=== PATIENT | female | born 1980 | race Caucasian/White ===

== ENCOUNTER 2018-06-30 08:48 | Emergency (ER) | payer MEDICAID ==
[~2018-06-30] VITALS: Ht 157.5 cm; Wt 98.3 kg
[~2018-06-30 08:48] MED LIST: ALPR0.25; FLUO40CA9
[2018-06-30 08:53] VITALS: BP 135/90
[2018-06-30] MEDS ORDERED: LURA20TA PO (09:08)
[2018-06-30] MEDS ORDERED: AMLO5TAB7 PO (09:08)
[2018-06-30] MEDS ORDERED: HYDROcodone/APAP 5/325 TABLET ONE (09:12)
[2018-06-30] MEDS ORDERED: KETOROLAC 30 MG/1 ML ONE (09:12)
[2018-06-30] MEDS ORDERED: KETOROLAC 30 MG/1 ML IM ONE (09:30)
[2018-06-30] MEDS ORDERED: HYDROcodone/APAP 5/325 TABLET PO ONE (09:30)
== END 2018-06-30 10:11 | disposition home or self-care (01) ==
LOC: ED 10:05
DX: G89.11 Acute pain due to trauma (principal); M25.551 Pain in right hip; M25.552 Pain in left hip; F17.200 Nicotine dependence, unspecified, uncomplicated; W11.XXXA Fall on and from ladder, initial encounter; Y93.89 Activity, other specified; Y92.009 Unspecified place in unspecified non-institutional (private) residence as the place of occurrence of the external cause; Y99.8 Other external cause status
CPT/HCPCS: 71101; 72190; 96372; 99284; J1885

== ENCOUNTER 2019-03-06 14:35 | Inpatient (IN) | payer MEDICAID ==
[~2019-03-06] VITALS: Ht 157.5 cm; Wt 95.3 kg
[~2019-03-06 14:35] MED LIST changes: +AMLO-150 PO; +LURA20TA PO
--- NOTE | 2019-03-06 15:00 | NUR ---
PATIENT PRESENTS TO ED TODAY SI WITH PLAN, "I WILL HANG MYSELF, I WILL CUT MY WRISTS", PATIENT CRYING, LAYING IN GURNEY. SELF INFLICTED BITE HENOK TO RT ARM, ADMITS TO DRINKING 1 PINT OF VODKA TODAY, + MARIJUANA USE, PATIENT HAS BEEN OUT OF LORAZEPAM X 5 DAYS PER PATIENT. MD AT BEDSIDE, AWAITING MD ORDERS, ALL PERSONAL BELONGING IN BAG IN LOCKED STORAGE, ALL SAFETY MEASURES IN PLACE. SITTER AT DOORWAY WITH PATIENT IN SIGHT. Addendum: 03/06/19 at 1553 by MARÍA BITE HENOK TO RIGHT ARM WITH SKIN INTACT.
--- NOTE | 2019-03-06 15:10 | NUR ---
BREAK RN: Pt on ho, crying and moaning loudly. Garage doors down and sitter at bedside. Pt states she is unable to provide urine sample at this time.
--- NOTE | 2019-03-06 15:17 | NUR ---
BREAK RN: EDT at bedside to attempt to obtain a breathalyzer reading.
[2019-03-06 15:19] LABS: BASOPHILS # (AUTO) 0.05 x10^3/uL (0-0.1); BASOPHILS % (AUTO) 1 % (0-1); EOSINOPHILS # (AUTO) 0.15 x10^3/uL (0-0.4); EOSINOPHILS % (AUTO) 1 % (1-7); LYMPHOCYTES # (AUTO) 3.62 x10^3/uL (1-3.4); LYMPHOCYTES % (AUTO) 31 % (22-44); MD NO; MEAN CORPUSCULAR HGB CONC 33.7 g/dL (32.4-35.8); MEAN CORPUSCULAR VOLUME 91.9 fL (80-100); MEAN PLATELET VOLUME 8.9 fL (7.4-10.4); MONOCYTES # (AUTO) 0.62 x10^3/uL (0.2-0.8); MONOCYTES % (AUTO) 5 % (2-9); NEUTROPHILS # (AUTO) 7.15 x10^3/uL (1.8-6.8); NEUTROPHILS % (AUTO) 62 % (42-75); PLATELET COUNT 408 x10^3/uL (130-400); RED BLOOD COUNT 4.25 x10^6/uL (3.82-5.3); RED CELL DISTRIBUTION WIDTH 15.3 % (9.6-15.2)
[2019-03-06 15:28] LABS: ALBUMIN 4.2 g/dL (3.4-5.0); ANION GAP 8 mmol/L (5-15); CALCIUM 8.8 mg/dL (8.5-10.1); CHLORIDE 112 mmol/L (98-107); CREATININE 0.81 mg/dL (0.55-1.02); SALICYLATE LEVEL 3.8 mg/dL (2.8-20.0)
[2019-03-06] MEDS ORDERED: LORazepam 1MG TABLET PO ONE (15:30)
--- NOTE | 2019-03-06 15:38 | NUR ---
BREAK RN: Pt much quieter now, rocking back and forth on ho. This RN explained need for urine sample so that we may give the technical specialist cytogenetics who will speak with her any information regarding substances in her urine test. Pt agrees to give urine sample and thanks this RN for the explanation and care. This RN will pass on to primary RN that the pt appreciates thorough explanations regarding care.
[2019-03-06] MEDS ORDERED: LORazepam 1MG TABLET ONE (15:42)
--- NOTE | 2019-03-06 15:44 | NUR ---
BREAK RN: Pt medicated per MAR.
[2019-03-06 15:51] LABS: HCG UR SG 1.026 (1.003-1.030)
[2019-03-06 15:51] LABS: ACETAMINOPHEN < 2 mcg/mL (10-30)
[2019-03-06 16:05] LABS: AMPHETAMINE SCREEN, URINE Negative (Negative); BARBITURATE SCREEN, URINE Negative (Negative); BENZODIAZEPINE SCREEN, URINE Negative (Negative); CANNABINOID SCREEN, URINE Positive (Negative); COCAINE SCREEN, URINE Negative (Negative); METHADONE SCREEN, URINE Negative (Negative); OPIATE SCREEN, URINE Negative (Negative)
--- NOTE | 2019-03-06 17:13 | NUR ---
HBI will see
[2019-03-06] MEDS ORDERED: ONDANSETRON 2MG/ML, 2ML IVPush PRN (17:30)
[2019-03-06] MEDS ORDERED: hydrALAzine 20 MG/ML, 1ML IVPush PRN (17:30)
[2019-03-06] MEDS ORDERED: AZITHROMYCIN 500 MG in SODIUM CHLORIDE 0.9% 250 ML IV SCH (17:30)
[2019-03-06] MEDS ORDERED: ENOXAPARIN 40 MG/0.4 ML SQ SCH (17:30)
[2019-03-06] MEDS ORDERED: TOPI50TA35 PO (18:00)
[2019-03-06] MEDS ORDERED: FLUO40CA9 PO (18:00)
[2019-03-06] MEDS ORDERED: GABA-827 PO (18:00)
[2019-03-06] MEDS ORDERED: LORA1TAB PO (18:01)
[2019-03-06] MEDS ORDERED: ENOXAPARIN 40 MG/0.4 ML ONE (18:09)
[2019-03-06] MEDS ORDERED: AMLODIPINE 5 MG TABLET ONE (18:10)
[2019-03-06] MEDS ORDERED: methylPREDNISolone SOD SUCC 125 MG/2 ML ONE (18:10)
[2019-03-06] MEDS: AMLODIPINE 5 MG TABLET PO SCH ×2 (18:13→21:00)
[2019-03-06] MEDS: methylPREDNISolone SOD SUCC 125 MG/2 ML IVPush SCH ×2 (18:14→23:32)
--- NOTE | 2019-03-06 18:26 | NUR ---
NEW ORDERS, IV STARTED, ABX AND MEDICATIONS ADMINISTERED PER [facility] ORDER, NO CULTURES NEEDED PER DR ESTEBAN, REPORT TO ALIA ROMAN. AWAITING AVAILABLE SITTER PRIOR TO TRANSFER UPSTAIRS. PATIENT HAVING 8/10 HEAD PAIN, PAIN MEDICATION ADMINISTERED PER PRN ORDER. NO ADDITIONAL NEEDS AT THIS TIME. PATIENT SITTING IN GURNEY, CALM AND COOPERATIVE AT THIS TIME. SITTER AT DOORWAY WITH PATIENT IN SIGHT.
--- NOTE | 2019-03-06 18:33 | NUR ---
PATIENT AMBULATED TO BATHROOM WITH STEADY GAIT, BACK TO BED, SITTER AT DOORWAY, ALL SAFETY MEASURES IN PLACE. VS UPDATED IN CHART.
[2019-03-06] MEDS ORDERED: hydrALAzine 20 MG/ML, 1ML ONE (18:40)
--- NOTE | 2019-03-06 18:42 | NUR ---
BP 165/102, HYDRALIZINE ADMINISTERED PER [facility] ORDER. PATIENT READY FOR TRANSPORT. A+OX4.
--- NOTE | 2019-03-06 19:13 | NUR ---
PATIENT TRANSFERRED TO HOSPITAL BED UPSTAIRS.
[2019-03-06] MEDS: ACETAMINOPHEN 325 MG TABLET PO PRN (19:26)
[2019-03-06 19:54] VITALS: BP 146/81
[2019-03-06] MEDS: LISINOPRIL 20 MG TABLET PO SCH (20:30)
[2019-03-07 01:24] VITALS: BP 128/75
[2019-03-07] MEDS: methylPREDNISolone SOD SUCC 125 MG/2 ML IVPush SCH (05:10)
[2019-03-07] MEDS: ACETAMINOPHEN 325 MG TABLET PO PRN ×2 (05:15→13:21)
[2019-03-07 05:23] VITALS: BP 161/95
[2019-03-07 05:25] LABS: BASOPHILS # (AUTO) 0.02 x10^3/uL (0-0.1); BASOPHILS % (AUTO) 0 % (0-1); EOSINOPHILS % (AUTO) 0 % (1-7); LYMPHOCYTES # (AUTO) 1.32 x10^3/uL (1-3.4); LYMPHOCYTES % (AUTO) 11 % (22-44); MD NO; MEAN CORPUSCULAR HGB CONC 33.5 g/dL (32.4-35.8); MEAN CORPUSCULAR VOLUME 92.5 fL (80-100); MONOCYTES # (AUTO) 0.01 x10^3/uL (0.2-0.8); MONOCYTES % (AUTO) 0 % (2-9); NEUTROPHILS # (AUTO) 10.38 x10^3/uL (1.8-6.8); NEUTROPHILS % (AUTO) 89 % (42-75); PLATELET COUNT 368 x10^3/uL (130-400); RED BLOOD COUNT 4.72 x10^6/uL (3.82-5.3); RED CELL DISTRIBUTION WIDTH 15.3 % (9.6-15.2)
[2019-03-07] MEDS: AMLODIPINE 5 MG TABLET PO SCH ×2 (07:48→15:39)
[2019-03-07] MEDS: LISINOPRIL 20 MG TABLET PO SCH (07:48)
[2019-03-07 08:48] VITALS: BP 127/67
[2019-03-07] MEDS ORDERED: LURASIDONE 20 MG TABLET PO SCH (09:00)
[2019-03-07] MEDS ORDERED: NICOTINE 21 MG/24 HR PATCH.TD24 TD SCH (09:00)
[2019-03-07] MEDS ORDERED: AZITHROMYCIN 500 MG TABLET PO SCH (10:30)
[2019-03-07] MEDS ORDERED: NICO-487 TD (10:52)
[2019-03-07] MEDS ORDERED: IPRA3AMP30 INH (10:52)
[2019-03-07] MEDS ORDERED: FLUT1DIS3 INH (10:52)
[2019-03-07] MEDS ORDERED: AMLO-150 PO (10:52)
[2019-03-07] MEDS ORDERED: TIOT18CA INH (10:52)
[2019-03-07] MEDS ORDERED: LISI-170 PO (10:52)
[2019-03-07] MEDS ORDERED: AZIT500T5 PO (10:52)
[2019-03-07] MEDS ORDERED: PRED20TA PO (10:52)
[2019-03-07] MEDS ORDERED: LORA1TAB PO (13:07)
[2019-03-07] MEDS ORDERED: LORazepam 1MG TABLET ONE (13:20)
[2019-03-07] MEDS ORDERED: LORazepam 1MG TABLET PO ONE (13:30)
[2019-03-07 14:59] VITALS: BP 152/96
== END 2019-03-07 17:13 | DRG 885 ==
LOC: ED 15:38 → EDIP 17:02 → 4NOR 19:04 → 2N 03-07 14:03
PROVIDERS: ADMIT Internal Medicine; ATTEND Internal Medicine
DX: F32.1 Major depressive disorder, single episode, moderate (principal); R45.851 Suicidal ideations; J44.1 Chronic obstructive pulmonary disease with (acute) exacerbation; D72.829 Elevated white blood cell count, unspecified; E66.9 Obesity, unspecified; F17.200 Nicotine dependence, unspecified, uncomplicated; I10 Essential (primary) hypertension; Z91.19 Patient's noncompliance with other medical treatment and regimen; Z68.38 Body mass index [BMI] 38.0-38.9, adult; Z98.51 Tubal ligation status; Z88.0 Allergy status to penicillin
CPT/HCPCS: 36415; 80048; 80307; 81025; 82040; 84443; 85025; 93005; 99285; G0378; J0456; J1650; J0360; J2930; J7050; J7512

== ENCOUNTER 2020-03-10 09:20 | Emergency (ER) | payer MEDICAID ==
[~2020-03-10] VITALS: Ht 157.5 cm; Wt 105.3 kg
[~2020-03-10 09:20] MED LIST changes: +AZIT500T10 PO; +FLUO40CA9 PO; +FLUT1DIS3 INH; +GABA-827 PO; +IPRA3AMP30 INH; +LISI-170 PO; +LORA1TAB PO; +NICO-487 TD; +PRED20TA PO; +TIOT18CA INH; +TOPI50TA35 PO
[2020-03-10 09:22] VITALS: BP 133/64
[2020-03-10] MEDS ORDERED: HYDROcodone/APAP 5/325 TABLET PO ONE (10:00)
[2020-03-10] MEDS ORDERED: ACETAMINOPHEN 500 MG TABLET PO ONE (10:00)
[2020-03-10] MEDS ORDERED: HYDROcodone/APAP 5/325 TABLET ONE (10:07)
== END 2020-03-10 10:28 | disposition home or self-care (01) ==
LOC: ED 10:21
DX: S02.5XXA Fracture of tooth (traumatic), initial encounter for closed fracture (principal); K04.7 Periapical abscess without sinus; I10 Essential (primary) hypertension; E66.9 Obesity, unspecified; Z68.41 Body mass index [BMI] 40.0-44.9, adult; Z88.0 Allergy status to penicillin; X58.XXXA Exposure to other specified factors, initial encounter; Y93.9 Activity, unspecified; Y92.89 Other specified places as the place of occurrence of the external cause; Y99.8 Other external cause status
CPT/HCPCS: 99283

== ENCOUNTER 2020-03-12 23:45 | Emergency (ER) | payer MEDICAID ==
[~2020-03-12] VITALS: Ht 157.5 cm; Wt 104.9 kg
[2020-03-12 23:46] VITALS: BP 168/84
[2020-03-13] MEDS ORDERED: ONDANSETRON 2MG/ML, 2ML ONE (00:10)
[2020-03-13] MEDS ORDERED: MORPHINE SULFATE 4 MG/ML, 1ML ONE (00:10)
--- NOTE | 2020-03-13 00:10 | NUR ---
Patient presents to ER c/o epigastric pain which radiates to back. Patient has had the pain x1 week and it has become unbearable. Patient has also been nauseous. Patient states she has been taking a lot of ibuprofen and tylenol because she was on her period then she was having dental pain. Patient states she has a hx of pancreatitis. Patient is in NAD. Respirations even and unlabored.
[2020-03-13] MEDS ORDERED: ONDANSETRON 2MG/ML, 2ML IVPush ONE (00:30)
[2020-03-13] MEDS ORDERED: MORPHINE SULFATE 4 MG/ML, 1ML IVPush PRN (00:30)
[2020-03-13 01:18] LABS: ALANINE AMINOTRANSFERASE 24 U/L (12-78); ALBUMIN 3.5 g/dL (3.4-5.0); ANION GAP 6 mmol/L (5-15); CALCIUM 8.5 mg/dL (8.5-10.1); CHLORIDE 112 mmol/L (98-107); CREATININE 0.94 mg/dL (0.55-1.02)
[2020-03-13 01:23] LABS: ALKALINE PHOSPHATASE 64 U/L (45-117); BILIRUBIN,TOTAL 0.3 mg/dL (0.2-1.0)
[2020-03-13 01:32] LABS: BASOPHILS # (AUTO) 0.03 x10^3/uL (0-0.1); BASOPHILS % (AUTO) 0 % (0-1); EOSINOPHILS # (AUTO) 0.47 x10^3/uL (0-0.4); EOSINOPHILS % (AUTO) 6 % (1-7); LYMPHOCYTES # (AUTO) 1.78 x10^3/uL (1-3.4); LYMPHOCYTES % (AUTO) 24 % (22-44); MD NO; MEAN CORPUSCULAR HEMOGLOBIN 30.3 pg (27.0-34.8); MEAN CORPUSCULAR HGB CONC 33.5 g/dL (32.4-35.8); MEAN CORPUSCULAR VOLUME 90.4 fL (80-100); MEAN PLATELET VOLUME 9.7 fL (7.4-10.4); MONOCYTES # (AUTO) 0.48 x10^3/uL (0.2-0.8); MONOCYTES % (AUTO) 6 % (2-9); NEUTROPHILS # (AUTO) 4.84 x10^3/uL (1.8-6.8); NEUTROPHILS % (AUTO) 64 % (42-75); PLATELET COUNT 272 x10^3/uL (130-400); RED BLOOD COUNT 4.04 x10^6/uL (3.82-5.3); RED CELL DISTRIBUTION WIDTH 16.3 % (9.6-15.2)
[2020-03-13 01:44] LABS: MICROSCOPIC INDICATED
--- NOTE | 2020-03-13 02:31 | NUR ---
Discharge instructions given. All questions and concerns addressed. Patient ambulatory with a steady gait. Belongings with patient.
== END 2020-03-13 02:32 | disposition home or self-care (01) ==
LOC: ED 03-13 00:06
DX: K29.00 Acute gastritis without bleeding (principal); I10 Essential (primary) hypertension; F17.200 Nicotine dependence, unspecified, uncomplicated; Z98.51 Tubal ligation status
CPT/HCPCS: 36415; 76700; 80053; 81001; 83690; 84703; 85025; 96374; 96375; 99285; J2270; J2405

== ENCOUNTER 2020-04-20 10:48 | Emergency (ER) | payer MEDICAID ==
[~2020-04-20] VITALS: Ht 157.5 cm; Wt 104.3 kg
[2020-04-20 10:50] VITALS: BP 141/77
--- NOTE | 2020-04-20 10:57 | NUR ---
PT AMBULATED TO ROOM 18 FROM TRIAGE WITH A STEADY GAIT.
--- NOTE | 2020-04-20 10:59 | NUR ---
MD IS AT THE BEDSIDE FOR ASSESSMENT
[2020-04-20] MEDS ORDERED: ONDANSETRON ODT 4 MG ONE (11:06)
[2020-04-20] MEDS ORDERED: ACETAMINOPHEN 500 MG TABLET ONE (11:06)
--- NOTE | 2020-04-20 11:09 | NUR ---
PHLEBOTOMY IS AT THE BEDSIDE FOR BLOOD SAMPLING
[2020-04-20 11:23] LABS: BASOPHILS # (AUTO) 0.04 x10^3/uL (0-0.1); BASOPHILS % (AUTO) 0 % (0-1); EOSINOPHILS # (AUTO) 0.17 x10^3/uL (0-0.4); EOSINOPHILS % (AUTO) 2 % (1-7); LYMPHOCYTES # (AUTO) 2.06 x10^3/uL (1-3.4); LYMPHOCYTES % (AUTO) 20 % (22-44); MD NO; MEAN CORPUSCULAR HEMOGLOBIN 31.2 pg (27.0-34.8); MEAN CORPUSCULAR HGB CONC 33.5 g/dL (32.4-35.8); MEAN PLATELET VOLUME 9.2 fL (7.4-10.4); MONOCYTES # (AUTO) 0.66 x10^3/uL (0.2-0.8); MONOCYTES % (AUTO) 6 % (2-9); NEUTROPHILS # (AUTO) 7.67 x10^3/uL (1.8-6.8); NEUTROPHILS % (AUTO) 72 % (42-75); PLATELET COUNT 349 x10^3/uL (130-400); RED BLOOD COUNT 4.26 x10^6/uL (3.82-5.3); RED CELL DISTRIBUTION WIDTH 16.7 % (9.6-15.2)
[2020-04-20] MEDS ORDERED: ONDANSETRON ODT 4 MG PO ONE (11:30)
[2020-04-20] MEDS ORDERED: ACETAMINOPHEN 500 MG TABLET PO ONE (11:30)
[2020-04-20 11:36] LABS: ALANINE AMINOTRANSFERASE 28 U/L (12-78); ALBUMIN 3.8 g/dL (3.4-5.0); ANION GAP 9 mmol/L (5-15); CALCIUM 9.1 mg/dL (8.5-10.1); CHLORIDE 108 mmol/L (98-107); CREATININE 0.94 mg/dL (0.55-1.02)
[2020-04-20 11:41] LABS: ALKALINE PHOSPHATASE 81 U/L (45-117); BILIRUBIN,TOTAL 0.5 mg/dL (0.2-1.0); TOTAL PROTEIN 7.3 g/dL (6.4-8.2)
--- NOTE | 2020-04-20 11:50 | NUR ---
pt is sleeping sonorously on an E.R. gurney no acute changes noted at this time. and no distress noted at the current time. i will continue to monitor and treat as ordered, as well as prn.
== END 2020-04-20 12:48 | disposition home or self-care (01) ==
LOC: ED 12:37
DX: E86.0 Dehydration (principal); R11.2 Nausea with vomiting, unspecified; K59.00 Constipation, unspecified; R51 Headache; I10 Essential (primary) hypertension; Z98.51 Tubal ligation status
CPT/HCPCS: 36415; 80053; 83690; 84703; 85025; 99283; Q0162

== ENCOUNTER 2020-10-21 14:18 | Emergency (ER) | payer MEDICAID ==
[~2020-10-21] VITALS: Ht 157.5 cm; Wt 100.0 kg
[~2020-10-21 14:18] MED LIST changes: -NICO-487 TD; +NICO-587 TD
--- NOTE | 2020-10-21 15:36 | NUR ---
NECK FITTER: PT TO ROOM FROM LOBBY
[2020-10-21] MEDS ORDERED: IBUPROFEN 800 MG TABLET PO ONE (16:00)
[2020-10-21] MEDS ORDERED: DEXAMETHASONE 4 MG TABLET PO ONE (16:00)
[2020-10-21] MEDS ORDERED: DEXAMETHASONE 4 MG TABLET ONE (16:04)
[2020-10-21] MEDS ORDERED: IBUPROFEN 600 MG TABLET ONE (16:04)
--- NOTE | 2020-10-21 16:14 | NUR ---
Pt connected to pulse ox, b/p. call light, rails up, medicated per order. PCXR done, swabbed for strep, AIDET provided.
[2020-10-21 16:48] VITALS: BP 135/77
== END 2020-10-21 17:04 | disposition home or self-care (01) ==
LOC: ED 15:39
DX: J02.9 Acute pharyngitis, unspecified (principal); R06.00 Dyspnea, unspecified; R05 Cough; R09.81 Nasal congestion; R06.02 Shortness of breath; M79.10 Myalgia, unspecified site; I10 Essential (primary) hypertension; F17.210 Nicotine dependence, cigarettes, uncomplicated; Z98.51 Tubal ligation status
CPT/HCPCS: 71045; 87081; 87880; 99284; 99406

== ENCOUNTER 2020-11-08 14:00 | Emergency (ER) | payer MEDICAID ==
[~2020-11-08] VITALS: Ht 157.5 cm; Wt 106.1 kg
[2020-11-08 14:04] VITALS: BP 116/65
[2020-11-08] MEDS ORDERED: DEXAMETHASONE 4 MG/ML, 1ML PO ONE (14:30)
--- NOTE | 2020-11-08 16:21 | NUR ---
lap cutter truer operator: pt from lobby to room 24
[2020-11-08] MEDS ORDERED: DEXAMETHASONE 4 MG TABLET ONE (16:25)
--- NOTE | 2020-11-08 16:31 | NUR ---
PT MEDICATED PER ERP ORDER. CALL LIGHT WITHIN REACH. PT UPDATED ON RESULT.
--- NOTE | 2020-11-08 18:07 | NUR ---
REPORT TO [place], TRANSFER OF CARE AT THIS TIME.
--- NOTE | 2020-11-08 18:12 | NUR ---
Patient given discharge instructions and Rx, they have confirmed that they understand the instructions. Patient ambulatory with steady gait.
== END 2020-11-08 18:13 | disposition home or self-care (01) ==
LOC: ED 17:05
DX: J98.01 Acute bronchospasm (principal); J04.0 Acute laryngitis; B97.89 Other viral agents as the cause of diseases classified elsewhere; R05 Cough; I10 Essential (primary) hypertension
CPT/HCPCS: 71045; 87081; 87880; 99284; J1100

== ENCOUNTER 2020-11-15 14:38 | Emergency (ER) | payer MEDICAID ==
[~2020-11-15] VITALS: Ht 157.5 cm; Wt 105.4 kg
--- NOTE | 2020-11-15 14:51 | NUR ---
PT HERE WITH C/O SORE THROAT AND BODY ACHES X3 DAYS, ALSO STATES SHE LOST HER VOICE 3 WEEKS AGO. TESTED FOR COVID ON 10/16 AT [facility] BUT NOT RECEIVED RESULTS YET. PT PLACED ON VITALS MONITORS, CALL LIGHT PLACED WITHIN REACH. Addendum: 11/15/20 at 1458 by AUDI PT STATES SHE RECEIVED THE COVID VACCINE ON 11/10/20.
[2020-11-15] MEDS ORDERED: HYDROcodone/APAP 7.5-325MG/15ML UDC ONE (15:18)
[2020-11-15] MEDS ORDERED: ALBUTEROL/IPRATROPIUM 2.5MG/0.5MG, 3 ML ONE ×2 (15:18→15:24)
[2020-11-15] MEDS ORDERED: DEXAMETHASONE 4 MG TABLET ONE (15:19)
[2020-11-15] MEDS ORDERED: HYDROcodone/APAP 7.5-325MG/15ML UDC PO PRN (15:30)
[2020-11-15] MEDS ORDERED: ALBUTEROL/IPRATROPIUM 2.5MG/0.5MG, 3 ML NPPB SCH (15:30)
[2020-11-15] MEDS ORDERED: DEXAMETHASONE 4 MG TABLET PO ONE (15:30)
[2020-11-15 16:18] VITALS: BP 120/56
== END 2020-11-15 16:20 | disposition home or self-care (01) ==
LOC: ED 16:04
DX: J06.9 Acute upper respiratory infection, unspecified (principal); Z20.822 Contact with and (suspected) exposure to COVID-19; B34.9 Viral infection, unspecified; J40 Bronchitis, not specified as acute or chronic; F17.200 Nicotine dependence, unspecified, uncomplicated
CPT/HCPCS: 71045; 87635; 94640; 99284; 99285

== ENCOUNTER 2021-02-01 23:13 | Emergency (ER) | payer MEDICAID ==
[~2021-02-01] VITALS: Ht 157.5 cm; Wt 105.7 kg
--- NOTE | 2021-02-01 23:29 | NUR ---
THIS IS A 40 YO F W/ C/O RLQ ABD PAIN X4 DAYS. PT DENIES N/V/D/C. PT RESTING ON GURNEY W/ CALL LIGHT IN REACH, FAMILY AT BEDSIDE AND SIDE RAILS UPX2. RESP EVEN AND UNLABORED, NADN. AT BEDSIDE.
[2021-02-01] MEDS ORDERED: MORPHINE SULFATE 4 MG/ML, 1ML IVPush PRN (23:30)
[2021-02-01] MEDS ORDERED: ONDANSETRON 2MG/ML, 2ML IVPush ONE (23:30)
[2021-02-01] MEDS ORDERED: MORPHINE SULFATE 4 MG/ML, 1ML ONE (23:41)
[2021-02-01] MEDS ORDERED: ONDANSETRON 2MG/ML, 2ML ONE (23:41)
--- NOTE | 2021-02-01 23:55 | NUR ---
PT AMBULATED TO THE BR W/ A STEADY GAIT. URINE COLLECTED AND SENT TO LAB. PIV STARTED, LABS DRAWN AND PT MEDICATED PER EMAR. PT RESTING ON GURNEY W/ CALL LIGHT IN REACH, SIDE RAILS UPX2 AND FAMILY AT BEDSIDE. ANURAG BOLES. AWAITING CT.
[2021-02-01] MEDS ORDERED: OMNIPAQUE 350 MG/ML, 100ML BOTTLE ONE (23:59)
[2021-02-02 00:08] LABS: ALANINE AMINOTRANSFERASE 36 U/L (12-78); ALBUMIN 3.2 g/dL (3.4-5.0); ANION GAP 5 mmol/L (5-15); CALCIUM 8.5 mg/dL (8.5-10.1); CHLORIDE 109 mmol/L (98-107); CREATININE 0.86 mg/dL (0.55-1.02)
[2021-02-02 00:11] LABS: BASOPHILS % (AUTO) 1 % (0-1); EOSINOPHILS % (AUTO) 4 % (1-7); LYMPHOCYTES % (AUTO) 22 % (22-44); MEAN CORPUSCULAR HEMOGLOBIN 30.7 pg (27.0-34.8); MEAN CORPUSCULAR HGB CONC 33.2 g/dL (32.4-35.8); MEAN PLATELET VOLUME 9.2 fL (7.4-10.4); MONOCYTES % (AUTO) 12 % (2-9); NEUTROPHILS % (AUTO) 61 % (42-75); PLATELET COUNT 285 x10^3/uL (130-400); RED BLOOD COUNT 3.91 x10^6/uL (3.82-5.3); RED CELL DISTRIBUTION WIDTH 15.2 % (9.6-15.2)
[2021-02-02 00:13] LABS: ALKALINE PHOSPHATASE 79 U/L (45-117); BILIRUBIN,TOTAL 0.1 mg/dL (0.2-1.0); MD NO; TOTAL PROTEIN 6.3 g/dL (6.4-8.2)
--- NOTE | 2021-02-02 00:45 | NUR ---
PT RESTING ON GURNEY W/ CALL LIGHT IN REACH AND SIDE RAILS UPX2. FAMILY AT BEDSIDE. RESP EVEN AND UNLABORED, ANURAG. AWAITING CT READ AND UA. Addendum: 02/02/21 at 0047 by BILLAGA PT SLEEPING GURNEY W/ SIGNIFICANT OTHER, CALL LIGHT IN REACH AND SIDE RAILS UPX2. RESP EVEN AND UNLABOREDANURAG. AWAITING CT READ AND UA.
[2021-02-02] MEDS ORDERED: OMNIPAQUE 350 MG/ML, 100ML BOTTLE ONE (00:50)
--- NOTE | 2021-02-02 00:51 | NUR ---
TELEPHONE CALL TO LAB REGARDING DELAY IN URINE RESULTS.
[2021-02-02 00:53] LABS: MICROSCOPIC INDICATED
--- NOTE | 2021-02-02 00:58 | NUR ---
ALL TESTS RESULTED. PT IS UP FOR RECHECK AT THIS TIME. PT SLEEPING ON [employer] W/ S/O. ANURAG BOLES.
[2021-02-02 01:13] VITALS: BP 142/79
--- NOTE | 2021-02-02 01:19 | NUR ---
Patient given discharge instructions and they have confirmed that they understand the instructions. Patient ambulatory with steady gait.
== END 2021-02-02 01:20 | disposition home or self-care (01) ==
LOC: ED 23:48
DX: R10.31 Right lower quadrant pain (principal); I10 Essential (primary) hypertension; F17.200 Nicotine dependence, unspecified, uncomplicated; Z98.51 Tubal ligation status
CPT/HCPCS: 36415; 74177; 80053; 81001; 83690; 84703; 85025; 87086; 96374; 96375; 99285; J2270; J2405; Q9967

== ENCOUNTER 2021-02-18 14:44 | Emergency (ER) | payer MEDICAID ==
[~2021-02-18] VITALS: Ht 157.5 cm; Wt 106.2 kg
[2021-02-18] MEDS ORDERED: KETOROLAC 30 MG/1 ML IVPush ONE (15:00)
[2021-02-18] MEDS ORDERED: SODIUM CHLORIDE FLUSH 10ML SYR IVF ONE (15:00)
[2021-02-18] MEDS ORDERED: KETOROLAC 30 MG/1 ML ONE (15:09)
--- NOTE | 2021-02-18 15:17 | NUR ---
PIV PLACED. LABS DRAWN BY LEVEL VIAL SEALER. EMERGENCY WORKER PER DEC. PT REQUESTED TO BE PLACED ON HOME OXYGEN OF 2L, OXYGEN LEVEL AT 97% RA. PT CONNECTED TO MONITORING. CALL LIGHT IN REACH. SPOUSE AT BEDSIDE.
[2021-02-18 15:19] LABS: BASOPHILS % (AUTO) 1 % (0-1); EOSINOPHILS % (AUTO) 3 % (1-7); LYMPHOCYTES % (AUTO) 27 % (22-44); MEAN CORPUSCULAR HEMOGLOBIN 30.7 pg (27.0-34.8); MEAN CORPUSCULAR HGB CONC 33.6 g/dL (32.4-35.8); MEAN PLATELET VOLUME 8.5 fL (7.4-10.4); MONOCYTES % (AUTO) 5 % (2-9); NEUTROPHILS % (AUTO) 64 % (42-75); PLATELET COUNT 329 x10^3/uL (130-400); RED BLOOD COUNT 3.91 x10^6/uL (3.82-5.3)
[2021-02-18 15:20] LABS: MD NO
[2021-02-18 15:30] LABS: ALBUMIN 3.5 g/dL (3.4-5.0); ANION GAP 6 mmol/L (5-15); CALCIUM 8.6 mg/dL (8.5-10.1); CHLORIDE 109 mmol/L (98-107); CREATININE 0.87 mg/dL (0.55-1.02)
[2021-02-18 15:34] LABS: TROPONIN I < 0.015 ng/mL (0.000-0.045)
--- NOTE | 2021-02-18 15:36 | NUR ---
ALL RESULTS ARE BACK AT THIS TIME. CHART UP FOR RECHECK.
[2021-02-18 16:04] VITALS: BP 120/70
[2021-02-18] MEDS ORDERED: ONDANSETRON 2MG/ML, 2ML ONE (16:08)
[2021-02-18] MEDS ORDERED: MORPHINE SULFATE 4 MG/ML, 1ML ONE (16:08)
[2021-02-18] MEDS ORDERED: ASPIRIN 81 MG TABLET CHEW ONE (16:08)
--- NOTE | 2021-02-18 16:10 | NUR ---
PT C/O 06/05 PAIN. NOTIFIED. N/O RECEIVED. PT AT CT. MEDS ADMIN UPON PT RETURN.
[2021-02-18] MEDS ORDERED: OMNIPAQUE 350 MG/ML, 75ML BOTTLE ONE (16:17)
--- NOTE | 2021-02-18 16:22 | NUR ---
PT BACK FROM CT. MEDS ADMIN PER DEC.
[2021-02-18] MEDS ORDERED: ONDANSETRON 2MG/ML, 2ML IVPush ONE (16:30)
[2021-02-18] MEDS ORDERED: MORPHINE SULFATE 4 MG/ML, 1ML IVPush PRN (16:30)
[2021-02-18] MEDS ORDERED: ASPIRIN 81 MG TABLET CHEW PO ONE (16:30)
== END 2021-02-18 17:04 | disposition home or self-care (01) ==
LOC: ED 16:30
DX: R07.89 Other chest pain (principal); I10 Essential (primary) hypertension; F17.200 Nicotine dependence, unspecified, uncomplicated
CPT/HCPCS: 36415; 71045; 71275; 80048; 82040; 83880; 84484; 85025; 85379; 93005; 96374; 96375; 99285; J1885; J2270; J2405; Q9967

== ENCOUNTER 2021-02-27 06:48 | Emergency (ER) | payer MEDICAID ==
[~2021-02-27] VITALS: Ht 157.5 cm; Wt 104.8 kg
--- NOTE | 2021-02-27 07:07 | NUR ---
RLQ ABD PAIN X1 MONTH, N/V/D X1 DAY. PT STATES PAIN IS WORSE AFTER WAKING UP AND WHEN WALKING. MAGUI ATKINSON TO BEDSIDE FOR EVALUATION. PT BACK FROM BATHROOM WITH STEADY GAIT. PROVIDED UA. PT POSTIONED TO COMFORT. ATTACHED TO MONITORS. VSS. OSBORN.
[2021-02-27] MEDS ORDERED: MORPHINE SULFATE 4 MG/ML, 1ML IVPush PRN (07:30)
[2021-02-27] MEDS ORDERED: SODIUM CHLORIDE FLUSH 10ML SYR IVF ONE (07:30)
[2021-02-27] MEDS ORDERED: ONDANSETRON 2MG/ML, 2ML IVPush ONE (07:30)
[2021-02-27] MEDS ORDERED: SODIUM CHLORIDE 0.9% 1,000ML IVBOLUS ONE (07:30)
[2021-02-27 07:34] LABS: BASOPHILS % (AUTO) 1 % (0-1); EOSINOPHILS % (AUTO) 4 % (1-7); LYMPHOCYTES % (AUTO) 22 % (22-44); MEAN CORPUSCULAR HEMOGLOBIN 30.7 pg (27.0-34.8); MEAN CORPUSCULAR HGB CONC 33.3 g/dL (32.4-35.8); MEAN PLATELET VOLUME 8.6 fL (7.4-10.4); MONOCYTES % (AUTO) 7 % (2-9); NEUTROPHILS % (AUTO) 66 % (42-75); PLATELET COUNT 317 x10^3/uL (130-400); RED BLOOD COUNT 4.02 x10^6/uL (3.82-5.3); RED CELL DISTRIBUTION WIDTH 15.3 % (9.6-15.2)
[2021-02-27 07:35] LABS: MD NO
[2021-02-27] MEDS ORDERED: MORPHINE SULFATE 4 MG/ML, 1ML ONE (07:42)
[2021-02-27] MEDS ORDERED: ONDANSETRON 2MG/ML, 2ML ONE (07:42)
[2021-02-27 07:46] LABS: ALANINE AMINOTRANSFERASE 21 U/L (12-78); ALBUMIN 3.4 g/dL (3.4-5.0); ANION GAP 5 mmol/L (5-15); CALCIUM 9.1 mg/dL (8.5-10.1); CHLORIDE 107 mmol/L (98-107); CREATININE 0.81 mg/dL (0.55-1.02)
--- NOTE | 2021-02-27 07:50 | NUR ---
PT TO US VIA [facility]
[2021-02-27 07:51] LABS: ALKALINE PHOSPHATASE 74 U/L (45-117); BILIRUBIN,TOTAL 0.3 mg/dL (0.2-1.0); TOTAL PROTEIN 6.5 g/dL (6.4-8.2)
[2021-02-27 08:02] LABS: MICROSCOPIC INDICATED
[2021-02-27 08:25] VITALS: BP 130/78
--- NOTE | 2021-02-27 08:26 | NUR ---
PT BACK FROM US. POSTIONED TO COMFORT, ASLEEP. VSS.
--- NOTE | 2021-02-27 08:48 | NUR ---
Patient given discharge instructions and they have confirmed that they understand the instructions. Patient ambulatory with steady gait. Patient states she has safe ride home
== END 2021-02-27 08:49 | disposition home or self-care (01) ==
LOC: ED 07:09
DX: G89.29 Other chronic pain (principal); R10.31 Right lower quadrant pain; R11.2 Nausea with vomiting, unspecified; R19.7 Diarrhea, unspecified; I10 Essential (primary) hypertension
CPT/HCPCS: 36415; 76830; 80053; 81001; 83690; 84703; 85025; 96361; 96374; 96375; 99284; J2270; J2405; J7030

== ENCOUNTER 2021-03-11 20:39 | Emergency (ER) | payer MEDICAID ==
[~2021-03-11] VITALS: Ht 157.5 cm; Wt 105.2 kg
[2021-03-11 20:49] VITALS: BP 144/81
--- NOTE | 2021-03-11 22:45 | NUR ---
CRESTER: PT FROM LOBBY TO ROOM AT THIS TIME.
[2021-03-11] MEDS ORDERED: IBUPROFEN 600 MG TABLET ONE (23:08)
[2021-03-11] MEDS ORDERED: HYDROcodone/APAP 5/325 TABLET ONE (23:09)
[2021-03-11] MEDS ORDERED: IBUPROFEN 600 MG TABLET PO ONE (23:30)
[2021-03-11] MEDS ORDERED: HYDROcodone/APAP 5/325 TABLET PO ONE (23:30)
== END 2021-03-11 23:16 | disposition home or self-care (01) ==
LOC: ED 23:14
DX: S39.012A Strain of muscle, fascia and tendon of lower back, initial encounter (principal); S30.0XXA Contusion of lower back and pelvis, initial encounter; F17.210 Nicotine dependence, cigarettes, uncomplicated; I10 Essential (primary) hypertension; W10.9XXA Fall (on) (from) unspecified stairs and steps, initial encounter; Y93.89 Activity, other specified; Y92.009 Unspecified place in unspecified non-institutional (private) residence as the place of occurrence of the external cause; Y99.8 Other external cause status
CPT/HCPCS: 72110; 72190; 72220; 99284; 99406

== ENCOUNTER 2021-04-15 11:23 | Emergency (ER) | payer MEDICAID ==
[~2021-04-15] VITALS: Ht 157.5 cm; Wt 103.5 kg
--- NOTE | 2021-04-15 11:40 | NUR ---
EKG COMPLETED IN TRIAGE
--- NOTE | 2021-04-15 12:02 | NUR ---
PT C/O OF PAIN ON THE RIGHT SIDE RIBS AND RIGHT SHOULDER EVERYTIME SHE BREATHES . 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 PAIN IS SHARP EVERY TIME TAKES A BREATH. DENIES INJURY AND HISTORY OF THIS PAIN.
--- NOTE | 2021-04-15 12:05 | NUR ---
PROVIDER AT BEDSIDE TO DO EVAULATION.
--- NOTE | 2021-04-15 12:05 | NUR ---
PAIN IS ALWAYS THERE BUT WORSE WHEN BREATHS.
[2021-04-15] MEDS ORDERED: MORPHINE SULFATE 4 MG/ML, 1ML ONE ×3 (12:23→16:05)
[2021-04-15] MEDS ORDERED: ONDANSETRON 2MG/ML, 2ML ONE (12:23)
[2021-04-15] MEDS: MORPHINE SULFATE 4 MG/ML, 1ML IVPush PRN ×2 (12:28→13:14)
[2021-04-15] MEDS ORDERED: SODIUM CHLORIDE FLUSH 10ML SYR IVF ONE (12:30)
[2021-04-15] MEDS ORDERED: ONDANSETRON 2MG/ML, 2ML IVPush ONE (12:30)
--- NOTE | 2021-04-15 12:30 | NUR ---
TASK RN, COVERING PRIMARY BREAK. PT MEDICATED PER ERP ORDER FOR 10/10 R RIB/CW AND R SHOULDER PAIN. VSS/UPDATED IN COMPUTER. FAMILY AT BS, CALL LIGHT WITHIN REACH.
[2021-04-15 12:37] LABS: BASOPHILS % (AUTO) 0 % (0-1); EOSINOPHILS % (AUTO) 1 % (1-7); LYMPHOCYTES % (AUTO) 8 % (22-44); MEAN CORPUSCULAR HEMOGLOBIN 30.3 pg (27.0-34.8); MEAN CORPUSCULAR HGB CONC 33.1 g/dL (32.4-35.8); MEAN PLATELET VOLUME 9.1 fL (7.4-10.4); MONOCYTES % (AUTO) 5 % (2-9); NEUTROPHILS % (AUTO) 86 % (42-75); PLATELET COUNT 298 x10^3/uL (130-400); RED BLOOD COUNT 4.02 x10^6/uL (3.82-5.3); RED CELL DISTRIBUTION WIDTH 14.7 % (9.6-15.2)
[2021-04-15 12:43] LABS: ALANINE AMINOTRANSFERASE 26 U/L (12-78); ALBUMIN 3.4 g/dL (3.4-5.0); ANION GAP 6 mmol/L (5-15); CALCIUM 8.7 mg/dL (8.5-10.1); CHLORIDE 104 mmol/L (98-107); CREATININE 0.86 mg/dL (0.55-1.02)
--- NOTE | 2021-04-15 12:47 | NUR ---
ULTRASOUND FINISHED ON PT IN ROOM.
[2021-04-15 12:48] LABS: ALKALINE PHOSPHATASE 76 U/L (45-117); BILIRUBIN,TOTAL 0.4 mg/dL (0.2-1.0); TOTAL PROTEIN 6.7 g/dL (6.4-8.2); TROPONIN I < 0.015 ng/mL (0.000-0.045)
[2021-04-15] MEDS ORDERED: SODIUM CHLORIDE 0.9% 1,000 ML IV ONE (13:00)
--- NOTE | 2021-04-15 13:18 | NUR ---
PT UP TO COLLECT URINE SAMPLE.
--- NOTE | 2021-04-15 13:19 | NUR ---
PT MEDICATED AFTER CONTINUES OF MOANING FROM PAIN NO RELIEF AFTER FIRST DOSE.
[2021-04-15 13:37] LABS: MICROSCOPIC NOT IND
[2021-04-15] MEDS ORDERED: MORPHINE SULFATE 4 MG/ML, 1ML IVPush PRN (14:00)
[2021-04-15] MEDS ORDERED: HYDROmorphone 1 MG/ML, 1ML INJ ONE (14:07)
--- NOTE | 2021-04-15 14:16 | NUR ---
REMEDICATED FOR CONTINUED PAIN RIGHT SIDE ESPECIALLY WITH INSPIRATION. LAB AT BEDSIDE AND AWAITING CT. AT BEDSIDE.
[2021-04-15] MEDS ORDERED: HYDROmorphone 1 MG/ML, 1ML INJ IV ONE (14:30)
--- NOTE | 2021-04-15 14:59 | NUR ---
RESTING WITH EYES CLOSED
--- NOTE | 2021-04-15 15:15 | NUR ---
TO CT VIA [facility]
[2021-04-15] MEDS ORDERED: OMNIPAQUE 350 MG/ML, 150 ML BOTTLE ONE (15:47)
[2021-04-15] MEDS ORDERED: KETOROLAC 30 MG/1 ML ONE (16:28)
[2021-04-15] MEDS ORDERED: AZITHROMYCIN 500 MG in SODIUM CHLORIDE 0.9% 250 ML IV ONE (16:30)
[2021-04-15] MEDS ORDERED: CEFTRIAXONE 1,000 MG in DEXTROSE 5% 50 ML IVPB ONE (16:30)
[2021-04-15] MEDS ORDERED: KETOROLAC 30 MG/1 ML IVPush ONE (16:30)
--- NOTE | 2021-04-15 16:40 | NUR ---
ADDITIONALLY MEDICATED FOR PAIN AND ANTIBIOTICS INFUSING. QUESTIONS ANSWERED ABOUT CARE AND DISCHARGE PLANNING.
[2021-04-15 17:21] VITALS: BP 166/78
--- NOTE | 2021-04-15 17:22 | NUR ---
PT UOB WITH ASSISTANCE, INCREASED PAIN WITH MOVEMENT. ATTEMPTED TO SOOTHE PT. SECOND ANTIBIOTIC INFUSING
== END 2021-04-15 18:56 | disposition home or self-care (01) ==
LOC: ED 12:35
DX: J15.9 Unspecified bacterial pneumonia (principal); D72.829 Elevated white blood cell count, unspecified; R94.31 Abnormal electrocardiogram [ECG] [EKG]
CPT/HCPCS: 36415; 71045; 74177; 76700; 80053; 81003; 83690; 84484; 84703; 85025; 85379; 93005; 96361; 96365; 96367; 96375; 96376; 99285; J0456; J0696; J1170; J1885; J2270; J2405; J7030; J7050; Q9967

== ENCOUNTER 2021-04-25 08:04 | Emergency (ER) | payer MEDICAID ==
[~2021-04-25] VITALS: Ht 157.5 cm; Wt 100.6 kg
[2021-04-25] MEDS ORDERED: KETOROLAC 30 MG/1 ML IVPush ONE (08:30)
[2021-04-25 08:48] LABS: BASOPHILS % (AUTO) 1 % (0-1); EOSINOPHILS % (AUTO) 3 % (1-7); LYMPHOCYTES % (AUTO) 26 % (22-44); MEAN CORPUSCULAR HEMOGLOBIN 30.5 pg (27.0-34.8); MEAN CORPUSCULAR HGB CONC 33.5 g/dL (32.4-35.8); MEAN PLATELET VOLUME 8.1 fL (7.4-10.4); MONOCYTES % (AUTO) 6 % (2-9); NEUTROPHILS % (AUTO) 64 % (42-75); PLATELET COUNT 439 x10^3/uL (130-400)
[2021-04-25 09:01] LABS: ALANINE AMINOTRANSFERASE 27 U/L (12-78); ALBUMIN 3.4 g/dL (3.4-5.0); ANION GAP 7 mmol/L (5-15); CALCIUM 9.5 mg/dL (8.5-10.1); CHLORIDE 110 mmol/L (98-107)
[2021-04-25] MEDS ORDERED: MORPHINE SULFATE 4 MG/ML, 1ML ONE ×2 (09:02→11:07)
[2021-04-25] MEDS ORDERED: KETOROLAC 30 MG/1 ML ONE (09:02)
[2021-04-25 09:05] LABS: ALKALINE PHOSPHATASE 79 U/L (45-117); BILIRUBIN,TOTAL 0.3 mg/dL (0.2-1.0); TOTAL PROTEIN 7.6 g/dL (6.4-8.2); TROPONIN I < 0.015 ng/mL (0.000-0.045)
--- NOTE | 2021-04-25 09:08 | NUR ---
FIRST CONTACT W/ PT: THIS IS A 40 YO F W/ C/O RT SIDE RIB/SHOULDER PAIN AND PERSISTENT COUGH. PT REPORTS WAS DX W/ PNA W/ NO IMPROVEMENT S/P STARTING ABX (ZITHROMAX). PT REPORTS ALMOST DONE W/ FULL COURSE. PT MEDICATED W/ TORADOL. PT DECLINING MORPHINE AT THIS TIME AND IS REQUESTING DILAUDID. PT STATES THAT THE MORPHINE DOES NOT LAST LONG ENOUGH FOR HER. ERP UPDATED. PT RESTING ON GURNEY W/ CALL LIGHT IN REACH AND SIDE RAILS UPX2. FAMILY AT BEDSIDE. VSS, NADN. LABS PENDING AWAITING CTA.
--- NOTE | 2021-04-25 09:29 | NUR ---
PT REQUESTING DILAUDID, ENCOURAGED TO TRY MORPHINE BUT PT INSISTING ON WAITING. RESP EVEN AND UNLABORED, NADN. AWAITING CTA.
--- NOTE | 2021-04-25 09:34 | NUR ---
PT AMBULATED TO THE BR W/ ASSISTANCE FROM FAMILY. RETURNED TO ROOM W/O INCIDENT.
[2021-04-25 09:43] VITALS: BP 141/80
[2021-04-25] MEDS: MORPHINE SULFATE 4 MG/ML, 1ML IVPush PRN ×2 (09:44→11:16)
--- NOTE | 2021-04-25 09:44 | NUR ---
PT AGREED TO TAKE MORPHINE. ANURAG BOLES.
--- NOTE | 2021-04-25 09:49 | NUR ---
PT TO CT.
--- NOTE | 2021-04-25 09:54 | NUR ---
PT RETURNED FROM CT. RESP EVEN AND UNLABORED, NADN.
[2021-04-25] MEDS ORDERED: OMNIPAQUE 350 MG/ML, 75ML BOTTLE ONE (10:04)
--- NOTE | 2021-04-25 11:11 | NUR ---
AT BEDSIDE FOR RECHECK.
--- NOTE | 2021-04-25 11:21 | NUR ---
PT SITTING ON GURNEY, TALKING ON PHONE. MEDICATED PER EMAR. OSBORN.
--- NOTE | 2021-04-25 11:33 | NUR ---
Patient given discharge instructions and they have confirmed that they understand the instructions. Patient ambulatory with steady gait.
== END 2021-04-25 11:34 | disposition home or self-care (01) ==
LOC: ED 08:20
DX: R09.1 Pleurisy (principal); J18.9 Pneumonia, unspecified organism; R07.89 Other chest pain; I10 Essential (primary) hypertension; F17.200 Nicotine dependence, unspecified, uncomplicated
CPT/HCPCS: 36415; 71045; 71275; 80053; 84484; 85025; 93005; 96374; 96375; 96376; 99285; J1885; J2270; Q9967

== ENCOUNTER 2021-06-04 10:21 | Emergency (ER) | payer MEDICAID ==
[~2021-06-04] VITALS: Ht 157.5 cm; Wt 100.8 kg
[2021-06-04 10:23] VITALS: BP 153/90
[2021-06-04 10:54] LABS: BASOPHILS % (AUTO) 1 % (0-1); EOSINOPHILS % (AUTO) 3 % (1-7); LYMPHOCYTES % (AUTO) 23 % (22-44); MEAN CORPUSCULAR HEMOGLOBIN 30.7 pg (27.0-34.8); MEAN CORPUSCULAR HGB CONC 33.8 g/dL (32.4-35.8); MEAN PLATELET VOLUME 8.7 fL (7.4-10.4); MONOCYTES % (AUTO) 5 % (2-9); NEUTROPHILS % (AUTO) 69 % (42-75); PLATELET COUNT 326 x10^3/uL (130-400); RED BLOOD COUNT 4.36 x10^6/uL (3.82-5.3); RED CELL DISTRIBUTION WIDTH 15.9 % (9.6-15.2)
--- NOTE | 2021-06-04 10:54 | NUR ---
PT AMBULATORY TO ROOM FROM [facility], PT CHANGED INTO GOWN, MONITORS IN PLACE. PT C/O BILATERAL KNEE & ANKLE PAIN THAT STARTED 1 WEEK AGO. PT STATES NOW HER ELBOWS & JAW ARE PAINFUL SINCE LAST NIGHT. PT AXOX4. FAMILY AT BS. CALL LIGHT WITHIN REACH.
[2021-06-04 10:58] LABS: HCT (SEDRATE) 39.6 % (34.6-47.8)
[2021-06-04 11:06] LABS: ALBUMIN 3.3 g/dL (3.4-5.0); ANION GAP 8 mmol/L (5-15); CHLORIDE 106 mmol/L (98-107); CREATININE 0.96 mg/dL (0.55-1.02)
[2021-06-04] MEDS ORDERED: KETOROLAC 60 MG/2 ML ONE (11:17)
--- NOTE | 2021-06-04 11:25 | NUR ---
PT MEDICATED PER EMAR. NADN/VSS CALL LIGHT WITHIN REACH
[2021-06-04] MEDS ORDERED: KETOROLAC 30 MG/1 ML IM ONE (11:30)
[2021-06-04] MEDS ORDERED: HYDROcodone/APAP 5/325 TABLET PO ONE (12:00)
[2021-06-04] MEDS ORDERED: HYDROcodone/APAP 5/325 TABLET ONE (12:09)
--- NOTE | 2021-06-04 12:11 | NUR ---
PT MEDICATED PER EMAR
--- NOTE | 2021-06-04 12:21 | NUR ---
Patient given discharge instructions and they have confirmed that they understand the instructions. Patient ambulatory with steady gait.
== END 2021-06-04 12:23 | disposition home or self-care (01) ==
LOC: ED 10:29
DX: M25.521 Pain in right elbow (principal); M25.522 Pain in left elbow; M25.561 Pain in right knee; M25.562 Pain in left knee; I10 Essential (primary) hypertension; F17.200 Nicotine dependence, unspecified, uncomplicated
CPT/HCPCS: 36415; 80048; 82040; 85025; 85651; 86140; 96372; 99283; J1885